=== PATIENT | female | born 1935 | race Caucasian/White ===

== ENCOUNTER 2017-06-06 08:52 | Emergency (ER) | payer OTHER ==
[2017-06-06 09:00] VITALS: PULSE 108; RESP 18; TEMP 97.7; O2SAT 98
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
[2017-06-06] MEDS ORDERED: OXYCODONE/APAP 5/325 TAB PO ONE (09:18)
[2017-06-06] MEDS ORDERED: ACETAMINOPHEN 500 MG TAB PO ONE (09:24)
[2017-06-06] MEDS ORDERED: ACETAMINOPHEN 325 MG TAB ONE (09:30)
[2017-06-06] MEDS ORDERED: ACETAMINOPHEN 325 MG TAB PO ONE (09:32)
== END 2017-06-06 10:44 | disposition home or self-care (01) ==
DX: S82.61XA Displaced fracture of lateral malleolus of right fibula, initial encounter for closed fracture (principal); V18.0XXA Pedal cycle driver injured in noncollision transport accident in nontraffic accident, initial encounter; Y92.482 Bike path as the place of occurrence of the external cause; Y99.8 Other external cause status; Y93.55 Activity, bike riding
CPT/HCPCS: 73610; 99283; L4386

== ENCOUNTER 2017-06-06 15:59 | Inpatient (IN) | payer OTHER ==
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
[2017-06-06 17:35] LABS: % IMMATURE GRANULYOCYTES 0.3 % (0.0-1.1); ABSOLUTE IMMATURE GRANULOCYTES 0.03 10^3/uL (0.00-0.10); ADD DIFF? NO; ADD MORPH? NO; ADD SCAN? NO; ATYPICAL LYMPHOCYTE FLAG 0 (0-99); FRAGMENT RBC FLAG 0 (0-99); HEMATOCRIT 37.8 % (38.0-47.0); HEMOGLOBIN 12.9 g/dL (12.6-16.3); LEFT SHIFT FLG 0 (0-99); LIPEMIA HEMOLYSIS FLAG 90 (0-99); MEAN CELL HEMOGLOBIN 29.9 pg (27.9-34.1); MEAN CELL HEMOGLOBIN CONCENTR. 34.1 g/dL (32.4-36.7); MEAN CELL VOLUME 87.7 fL (81.5-99.8); MEAN PLATELET VOLUME 10.7 fL (8.7-11.7); PLATELET CLUMPS FLAG 0 (0-99); PLATELET COUNT 242 10^3/uL (150-400); RED BLOOD CELL COUNT 4.31 10^6/uL (4.18-5.33); RED CELL DISTRIBUTION WIDTH 13.1 % (11.5-15.2)
[2017-06-06 17:44] LABS: INR 0.98 (0.83-1.16); PROTIME(PATIENT) 12.9 SEC (12.0-15.0)
[2017-06-06 17:45] LABS: APTT 27.8 SEC (23.0-38.0)
[2017-06-06 18:03] LABS: ANION GAP 12 mEq/L (8-16); CALCIUM 9.5 mg/dL (8.5-10.4); CARBON DIOXIDE 20 mEq/l (22-31); CHLORIDE 104 mEq/L (97-110); GLOMERULAR FILTRATION RATE 53; GLUCOSE 92 mg/dL (70-100); SODIUM 136 mEq/L (134-144)
[2017-06-06] MEDS ORDERED: BISACODYL 10 MG SUPP PR PRN (18:43)
[2017-06-06] MEDS ORDERED: POLYETHYLENE GLYCOL 3350 17 GM PKT PO PRN (18:43)
[2017-06-06] MEDS ORDERED: LACTULOSE 20 GM/30 ML UDCUP PO PRN (18:43)
[2017-06-06] MEDS ORDERED: MAGNESIUM HYDROXIDE 30 ML UDCUP PO PRN (18:43)
[2017-06-06] MEDS: oxyCODONE IR 5 MG TAB PO PRN ×3 (18:55→23:59)
[2017-06-06] MEDS ORDERED: ONDANSETRON 4 MG/2 ML VIAL IVP PRN (18:56)
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
[2017-06-06] MEDS: HYDROmorphONE/DILAUDID 1 MG/ML SYR IVP PRN (21:05)
[2017-06-06] MEDS: SENNOSIDES/DOCUSATE SODIUM TAB PO SCH (21:12)
[2017-06-06] MEDS: ACETAMINOPHEN 325 MG TAB PO PRN (22:17)
[2017-06-07] MEDS: ACETAMINOPHEN 325 MG TAB PO PRN (01:35)
[2017-06-07] MEDS: HYDROmorphONE/DILAUDID 1 MG/ML SYR IVP PRN (02:54)
[2017-06-07] MEDS: oxyCODONE IR 5 MG TAB PO PRN ×2 (04:13→08:54)
[2017-06-07] MEDS: SENNOSIDES/DOCUSATE SODIUM TAB PO SCH ×2 (08:00→20:43)
[2017-06-07] MEDS ORDERED: BUPIVACAINE 0.5% 30 ML SDV ONE (09:19)
[2017-06-07] MEDS ORDERED: ceFAZolin 2 GM/DEXTROSE 100 ML IV ONE (10:06)
[2017-06-07] MEDS ORDERED: CEFAZOLIN 2 GM/DEXTROSE/100 ML BAG IV ONE (10:07)
--- NOTE | 2017-06-07 10:08 | POSTOPPROG ---
Post Op Note Date of Operation: 06/07/17 Surgeon: Jace Anderson Anesthesia: GET(General Endotracheal) Pre-op Diagnosis: R bimalleolar ankle fx (posterior/medial) Post-op Diagnosis: same Procedure: ORIF R bimalleolar ankle fx Inf/Abcess present in the surg proc area at time of surgery?: No EBL: Minimal
[2017-06-07] MEDS ORDERED: MIDAZOLAM 2 MG/2 ML VIAL IVP ONE (10:09)
[2017-06-07] MEDS ORDERED: D5W 1/2 NS W/ 20 KCl/L 1,000 ML IV SCH (10:15)
[2017-06-07] MEDS ORDERED: MIDAZOLAM 2 MG/2 ML VIAL ONE (10:16)
--- NOTE | 2017-06-07 10:19 | PDANEPAE ---
ANE History of Present Illness orif ankle ANE Past Medical History - Cardiovascular History Hx Hypertension: No Hx Arrhythmias: No Hx Chest Pain: No Hx Coronary Artery / Peripheral Vascular Disease: No Hx CHF / Valvular Disease: No Hx Palpitations: No - Pulmonary History Hx COPD: No Hx Asthma/Reactive Airway Disease: No Hx Recent Upper Respiratory Infection: No Hx Oxygen in Use at Home: No Hx Sleep Apnea: No Sleep Apnea Screening Result - Last Documented: Negative - Neurologic History Hx Cerebrovascular Accident: No Hx Seizures: No Hx Dementia: No - Endocrine History Hx Diabetes: No - Renal History Hx Renal Disorders: No - Liver History Hx Hepatic Disorders: No - Chronic Pain History Chronic Pain: No ANE Review of Systems - Exercise capacity METS (RN): 4 METS ANE Patient History - Allergies Allergies/Adverse Reactions: No Known Allergies Allergy (Verified 07/02/16 23:23) - Home Medications Home Medications: Herbals/Supplements -Info Only 1 ea PO DAILY 06/06/17 [Last Taken Unknown] oxyCODONE/APAP 5/325 [Percocet 5/325] 0.5 tab PO Q6 PRN 06/06/17 [Last Taken 14:00] - NPO status NPO Status: no food or drink >8 hours NPO Since - Liquids (Date): 06/07/17 NPO Since - Liquids (Time): 00:00 NPO Since - Solids (Date): 06/07/17 NPO Since - Solids (Time): 00:00 - Smoking Hx Smoking Status: Never smoked LILLI Labs/Vital Signs - Labs Result Diagrams: 06/06/17 17:20 06/06/17 17:20 - Vital Signs Blood Pressure: 109/59 Heart Rate: 56 Respiratory Rate: 12 O2 Sat (%): 97 Height: 164.6 cm Weight: 63.957 kg ANE Physical Exam - Airway Mallampati Score: Class 2 Mouth exam: normal dental/mouth exam - Pulmonary Pulmonary: no respiratory distress - Cardiovascular Cardiovascular: regular rate and rhythym - ASA Status ASA Status: I LILLI Anesthesia Plan Anesthesia Plan: GA w LMA
[2017-06-07] MEDS ORDERED: KETOROLAC 30 MG/1 ML SDV ONE (10:22)
[2017-06-07] MEDS ORDERED: ONDANSETRON 4 MG/2 ML VIAL ONE (10:22)
[2017-06-07] MEDS ORDERED: DEXAMETHASONE 4 MG/ML VIAL ONE (10:22)
[2017-06-07] MEDS ORDERED: PROPOFOL 200 MG/20 ML VIAL ONE (10:23)
[2017-06-07] MEDS ORDERED: LIDOCAINE 2% 5 ML SDV ONE (10:23)
[2017-06-07] MEDS ORDERED: fentaNYL 100 MCG/2 ML INJ ONE (10:23)
[2017-06-07] MEDS ORDERED: epHEDrine SULFATE 10 MG/ML SYR ONE (10:45)
[2017-06-07] MEDS ORDERED: NALOXONE HCL 0.4 MG/ML INJ IVP PRN (12:10)
[2017-06-07] MEDS ORDERED: fentaNYL 100 MCG/2 ML INJ IVP PRN (12:10)
--- NOTE | 2017-06-07 12:10 | POSTANESTH ---
Post Anesthetic Evaluation Cardiovascular Status: Normal, Stable Respiratory Status: Normal, Stable Level of Consciousness/Mental Status: Can Participate in Eval Pain Control: Adequate, Prn Tx Ordered Nausea/Vomiting Control: Adequate, Prn Tx Ordered Complications Possibly Related to Anesthesia: None Noted
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
[2017-06-08] MEDS: oxyCODONE IR 5 MG TAB PO PRN ×2 (04:52→20:46)
[2017-06-08 05:06] LABS: % IMMATURE GRANULYOCYTES 0.4 % (0.0-1.1); ABSOLUTE IMMATURE GRANULOCYTES 0.04 10^3/uL (0.00-0.10); ADD DIFF? NO; ADD MORPH? NO; ADD SCAN? NO; ATYPICAL LYMPHOCYTE FLAG 0 (0-99); FRAGMENT RBC FLAG 0 (0-99); HEMOGLOBIN 11.6 g/dL (12.6-16.3); LEFT SHIFT FLG 0 (0-99); LIPEMIA HEMOLYSIS FLAG 90 (0-99); MEAN CELL HEMOGLOBIN CONCENTR. 34.1 g/dL (32.4-36.7); MEAN CELL VOLUME 87.9 fL (81.5-99.8); MEAN PLATELET VOLUME 10.5 fL (8.7-11.7); PLATELET CLUMPS FLAG 0 (0-99); PLATELET COUNT 212 10^3/uL (150-400); RED BLOOD CELL COUNT 3.87 10^6/uL (4.18-5.33); RED CELL DISTRIBUTION WIDTH 13.2 % (11.5-15.2)
[2017-06-08 05:24] LABS: ANION GAP 7 mEq/L (8-16); CALCIUM 9.3 mg/dL (8.5-10.4); CARBON DIOXIDE 24 mEq/l (22-31); CHLORIDE 103 mEq/L (97-110); CREATININE 0.9 mg/dL (0.6-1.0); GLOMERULAR FILTRATION RATE > 60; GLUCOSE 88 mg/dL (70-100); POTASSIUM 3.9 mEq/L (3.5-5.2); SODIUM 134 mEq/L (134-144)
[2017-06-08] MEDS: ACETAMINOPHEN 325 MG TAB PO PRN ×3 (09:06→20:47)
[2017-06-08] MEDS: SENNOSIDES/DOCUSATE SODIUM TAB PO SCH ×2 (09:06→20:46)
--- NOTE | 2017-06-08 12:34 | SOAPPROG ---
SOAP Progress Note Assessment/Plan: Assessment: S/P ORIF R bimalleolar ankle fx. Minimal pain Aylin po OOB Splint intact, no D/C Toes with good cap refill Able to flex.ext toes Plan: OOB/PT OK for D/C from ortho standpoint when ready. F/U 06/16 or 06/1806/08/17 12:32 Objective: Vital Signs Temp Pulse Resp BP Pulse Ox 37.2 C 61 16 115/55 L 93 06/08/17 11:49 06/08/17 11:49 06/08/17 11:49 06/08/17 11:49 06/08/17 11:49 Laboratory Results 06/08/17 04:49 06/08/17 04:49 06/07/17 06/08/17 06/09/17 05:59 05:59 05:59 Intake Total 550 790 Output Total 200 1000 400 Balance 350 -210 -400 PT 12.9 SEC (12.0-15.0) 06/06/17 17:20 INR 0.98 (0.83-1.16) 06/06/17 17:20 ICD10 Worksheet Patient Problems: Problems Problem Status Onset Ankle fracture, right Acute Urinary tract infection Acute
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
[2017-06-08] MEDS: ASPIRIN EC 81 MG TAB PO SCH (14:27)
[2017-06-09 05:06] VITALS: RESP 16
[2017-06-09] MEDS: ACETAMINOPHEN 325 MG TAB PO PRN (05:28)
[2017-06-09 07:46] VITALS: TEMP 99
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
[2017-06-09] MEDS: ASPIRIN EC 81 MG TAB PO SCH (09:55)
[2017-06-09] MEDS: SENNOSIDES/DOCUSATE SODIUM TAB PO SCH (09:55)
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
[2017-06-09 11:32] VITALS: BP 116/76; PULSE 99; O2SAT 92
--- NOTE | 2017-06-09 14:29 | PDIAF ---
- Diagnosis Diagnosis: bimalleolar fx s/p ORIF Code Status: Full Code - Medication Management Discharge Medications: Medications to Continue on Transfer Herbals/Supplements -Info Only 1 ea PO DAILY 06/06/17 [Last Taken Unknown] oxyCODONE/APAP 5/325 [Percocet 5/325 (*)] 0.5 tab PO Q6 PRN 06/06/17 [Last Taken 06/06/17 14:00] Acetaminophen [Tylenol 325mg (*)] 650 mg PO Q4 PRN #0 tab 06/09/17 [Last Taken Unknown] Aspirin EC [Aspirin EC 81 mg (*)] 81 mg PO DAILY tab 06/09/17 [Last Taken Unknown] Polyethylene Glycol 3350 [Miralax 17 gm (*)] 17 gm PO DAILY PRN #0 pkt 06/09/17 [Last Taken Unknown] Sennosides/Docusate Sodium [Senokot-S] 1 - 2 tab PO BID tab 06/09/17 [Last Taken Unknown] oxyCODONE IR [Oxycodone Ir (*)] 5 mg PO Q4 PRN #20 tab 06/09/17 [Last Taken Unknown] Discharge Medications: Refer to the Discharge Home Medication list for PRN reason. PICC Care - Routine: N/A - Orders Services needed: Physical Therapy, Occupational Therapy Diet Recommendation: no restrictions on diet Diet Texture: Regular Texture Diet Activity/Weight Bearing Restrictions: weight bearing Additional: patient takes her own supplements for thyroid,etc. Make a follow up appt with Dr Anderson. - Follow Up Care Current Providers and Referrals: JIMMY BASSETT [Medical Doctor] - As per Instructions Jace Anderson MD [Medical Doctor] -
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
[2017-06-10] MEDS ORDERED: Herbals/Supplements -Info Only PO SCH (09:00)
== END 2017-06-09 16:17 | DRG 494 ==
LOC: F3N 18:18 → OBSVTOIN 18:55
PROVIDERS: ADMIT Internal Medicine; ATTEND Internal Medicine
PROC: 0QSG04Z Reposition Right Tibia with Internal Fixation Device, Open Approach (ICD-10-PCS; principal; 2017-06-07 11:15)
DX: S82.841A Displaced bimalleolar fracture of right lower leg, initial encounter for closed fracture (principal); K59.00 Constipation, unspecified; E03.9 Hypothyroidism, unspecified; M81.0 Age-related osteoporosis without current pathological fracture; V18.0XXA Pedal cycle driver injured in noncollision transport accident in nontraffic accident, initial encounter; Y93.55 Activity, bike riding
CPT/HCPCS: 97116-GP; 97161-GP; 97165-GO; 97530-GP; 97535-GO; C1713; G8978-GP-CK; G8979-GP-CJ; G8987-GO-CK; G8988-GO-CI; J0690; J1100; J1170; J1885; J2250; J2405; J2704; J3010

== ENCOUNTER 2018-04-06 17:36 | Emergency (ER) | payer OTHER ==
--- NOTE | 2018-04-06 18:09 | EDPHY ---
HPI/HX/ROS/PE/MDM Narrative: CHIEF COMPLAINT: Diarrhea HISTORY OF PRESENT ILLNESS: The patient is an 82 y/o female complaining of diarrhea, onset this morning at 04:20, 14 hours ago. On Friday, 2 days ago, she returned from visiting family in [place]. When she ate at a restaurant in [place], she did have one episode of diarrhea. Yesterday, she was asymptomatic and went to a barbecue. Since developing her symptoms this morning, she has had a diarrhea episode every 10 minutes. When standing up to use the restroom she develops generalized abdominal pain and becomes lightheaded. Throughout the day, she has noticed that the diarrhea has started to smell more acidic. For the past several years she has taken an probiotic. Denies using an antibiotic recently. No fever, chills, chest pain, shortness of breath, palpitations, vomiting, urinary complaints, headache. REVIEW OF SYSTEMS: Aside from elements discussed in the HPI, a comprehensive 10-point review of systems was reviewed and is negative. PAST MEDICAL HISTORY: Appendectomy SOCIAL HISTORY: Lives in [place], , retired VITAL SIGNS: Reviewed by me GENERAL: Well-developed, well-nourished, resting comfortably in no respiratory distress. HEENT: Atraumatic. Eyes: No icterus, no injection. Mouth: moist mucous membranes. No erythema or lesions. Neck: supple with no adenopathy. LUNGS: Clear to auscultation bilaterally, no wheezes, rhonchi or rales. CARDIAC: Regular rate and rhythm, no rubs, murmurs or gallops. ABDOMEN: Soft, nontender, nondistended, hyperactive bowel sounds. BACK: No CVA tenderness. EXTREMITIES: No trauma. No edema. Range of motion is normal throughout. NEURO: Alert and oriented, grossly nonfocal. SKIN: Warm and dry, no rash. PSYCHIATRIC: Normal mentation, no agitation. Portions of this note were transcribed by a medical review coordinator. I personally performed a history, physical exam, medical decision making, and confirmed accuracy of information the transcribed note. ED Course: The patient is an 82 y/o female presenting with diarrhea, onset this morning at 04:20, 14 hours ago. On exam she has hyperactive bowel sounds. Labs ordered; 1L IV NS administered. 1954: Patient's blood work is normal; GI pathogen panel still pending. 2051: Patient's GI pathogen panel reveals rotavirus. 4mg PO Imodium administered. 2111: Reassessed patient and discussed laboratory findings. She has had her 6th episode of diarrhea since arriving to the emergency department; 50mcg IV Fentanyl and additional 1L IV NS administered. Offered admission to the hospital due to concerns regarding ongoing diarrhea and ongoing possibility of dehydration. Patient is taking po fluids. She would prefer to be discharged to home and understands my concerns. Will provide additional fluids and small dose of Fentanyl to treat pain/ slow down ongoing diarrhea. 2214: Patient is feeling better after additional fluids and Fentanyl. I have advised her to take Imodium OTC and follow a bland diet. Return precautions provided; patient is comfortable with this plan. MDM: Diff dx considered included but not limited to gastroenteritis, viral gastroenteritis, dehydration, dysentery, bacterial diarrhea, electrolyte abnormalities secondary to diarrhea. - Data Points Laboratory Results: Laboratory Results 04/06/18 18:10 04/06/18 18:10 Medications Given: Discontinued Medications Fentanyl (Sublimaze) 50 mcg IVP EDNOW ONE Stop: 04/06/18 21:24 Last Admin: 04/06/18 21:29 Dose: Not Given Sodium Chloride (Ns) 1,000 mls @ 0 mls/hr IV EDNOW ONE; Wide Open PRN Reason: Protocol Stop: 04/06/18 18:24 Last Admin: 04/06/18 18:31 Dose: 1,000 mls Sodium Chloride (Ns) 1,000 mls @ 0 mls/hr IV ONCE ONE; Wide Open PRN Reason: Protocol Stop: 04/06/18 21:24 Last Admin: 04/06/18 21:28 Dose: 1,000 mls Loperamide HCl ( Imodium) 4 mg PO EDNOW ONE Stop: 04/06/18 20:50 Last Admin: 04/06/18 20:58 Dose: 4 mg General Time Seen by Provider: 04/06/18 18:07 Initial Vital Signs: Initial Vital Signs Temperature (C) 37.4 C 04/06/18 17:38 Heart Rate 89 04/06/18 17:38 Respiratory Rate 16 04/06/18 17:38 Blood Pressure 127/88 H 04/06/18 17:38 O2 Sat (%) 96 04/06/18 17:38 O2 Delivery Mode Room Air Allergies/Adverse Reactions: No Known Allergies Allergy (Verified 07/02/16 23:23) Home Medications: Medication Instructions Recorded Herbals/Supplements -Info Only 1 ea PO DAILY 06/06/17 Departure - Departure Disposition: Home, Routine, Self-Care Clinical Impression: Diarrhea, Rotavirus infection Condition: Good Instructions: Gastroenteritis (ED), Acute Diarrhea (ED) Additional Instructions: Take Imodium over the counter for diarrhea. Take 4mg to start (we gave this to you in the emergency department). Take 2mg after each diarrheal stool. Take no more additional four 2 mg tablets. For your abdominal pain, I suggested you start with a bland diet and advance as tolerated. This means start with clear liquids such as water, Gatorade, juice, flat non- caffeinated soda. If you tolerate clear liquids, then you may add bland foods such as bananas, rice, or toast. If you do not have any worsening of your symptoms, you may begin to resume a regular diet. Increase your fluid intake. Follow-up with your primary doctor within 72 hours. Return to the Emergency Department for fever, chest pain, shortness of breath, increasing pain or other worsening of condition. Referrals: NONE *PRIMARY CARE P,. [Primary Care Provider] - As per Instructions [facility],. [Clinic] - As per Instructions Humble Patel MD [[facility] Primary Care Provider] - As per Instructions Report Scribed for: Lyssa Pickett Report Scribed by: Kaela Marquez Date of Report: 04/06/18 Time of Report: 18:09
[2018-04-06] MEDS ORDERED: NS 1,000 ML IV ONE ×2 (18:23→21:23)
[2018-04-06 18:34] LABS: PLATELET COUNT 252 10^3/uL (150-400)
[2018-04-06] MEDS ORDERED: CALCIUM CARBONATE 500 MG CHEWABLE TAB PO ONE (19:39)
[2018-04-06] MEDS ORDERED: LOPERAMIDE HCL 2 MG CAP PO ONE (20:49)
[2018-04-06] MEDS ORDERED: fentaNYL 100 MCG/2 ML INJ IVP ONE (21:23)
[2018-04-06 22:48] VITALS: BP 140/71
== END 2018-04-06 22:46 | disposition home or self-care (01) ==
DX: B33.3 Retrovirus infections, not elsewhere classified (principal); E86.9 Volume depletion, unspecified
CPT/HCPCS: 96360; 99284; J3010

== ENCOUNTER → 2019-01-08 | Outpatient (CLI) | payer OTHER | LOC: BMCIMAGING 07:10 | PROVIDERS: ATTEND Family Medicine | DX: R10.9 Unspecified abdominal pain (principal) ==

== ENCOUNTER 2019-03-31 11:12 | Emergency (ER) | payer OTHER | END 2019-03-31 13:21 | disposition home or self-care (01) ==

== ENCOUNTER → 2019-04-07 | Outpatient (CLI) | payer OTHER | LOC: BMCIMAGING 15:12 ==